=== PATIENT | male | born 1955 ===

== ENCOUNTER → 2017-06-20 | Outpatient (CLI) | payer MEDICAID ==
[2017-06-20 13:06] VITALS: BP 117/69
== END | disposition home or self-care (01) ==
LOC: SRCNTR 12:50
PROVIDERS: ATTEND Internal Medicine
DX: G82.20 Paraplegia, unspecified (principal); Q67.6 Pectus excavatum; Q85.00 Neurofibromatosis, unspecified; M48.061 Spinal stenosis, lumbar region without neurogenic claudication; G70.9 Myoneural disorder, unspecified; R09.02 Hypoxemia; Z99.3 Dependence on wheelchair
CPT/HCPCS: G0463